=== PATIENT | male | born 1950 | race African-American/Black ===

== ENCOUNTER 2019-12-03 15:35 | Inpatient (IN) ==
[2019-12-03] MEDS ORDERED: nitroGLYCERIN DRIP 0 MCG/0 ML BTL ONE (15:45)
[2019-12-03] MEDS ORDERED: Heparin - STEMI 5,000 UNITS/ML 1 ml VIAL IV ONE ×2 (15:45→15:51)
[2019-12-03] MEDS ORDERED: NS 0.9% 1000 ml BAG 1,000 ML IV ONE ×2 (15:48→17:51)
[2019-12-03 16:03] LABS: ABS Basophils 0.1 10^3/ul (0-0.2); ABS Lymphocytes 1.2 10^3/ul (1.0-4.8); ABS Monocytes 0.6 10^3/ul (0-0.8); ABS Neutrophils 7.5 10^3/ul (1.5-7.7); Eosinophil % 0.1 %; Hematocrit 43 % (42-52); Hemoglobin 14.7 g/dL (14.0-18.0); Lymphocyte % 12.6 %; Mean Corpuscular HGB Conc 34 g/dL (31-36); Mean Corpuscular Hemoglobin 31 pg (27-31); Mean Corpuscular Volume 93 fL (80-94); Platelet Count 299 10^3/uL (150-450); Red Blood Count 4.67 10^6 /uL (4.18-5.48); Red Cell Distribution Width 15 % (10-15); White Blood Count 9.4 10^3/uL (3.5-10.8)
[2019-12-03] MEDS ORDERED: Heparin 1,000 UNIT/ML 10 ml (10,000 UNITS) CATHLAB/DIALYSIS IV ONE (16:03)
[2019-12-03] MEDS ORDERED: VERAPAMIL 2.5 MG/ML 2 ML VIAL ** 5 mg/2 ml ONE (16:03)
[2019-12-03] MEDS ORDERED: Lidocaine 1% VIAL 10 MG/ML VIAL ONE (16:04)
[2019-12-03] MEDS ORDERED: Heparin 2 UNITS/ML 1000 mls 2,000 ML IV ONE ×3 (16:04→16:29)
[2019-12-03] MEDS ORDERED: nitroGLYCERIN DRIP 25,000 MCG/250 ML BTL ONE (16:04)
[2019-12-03] MEDS ORDERED: Iohexol 350 (CONTRAST) 200 ML MDV IV ONE (16:05)
[2019-12-03 16:10] LABS: INR 1.01 (0.82-1.09)
[2019-12-03] MEDS ORDERED: Amiodarone 360 MG IVPREMIX 360 MG/200 ML BAG IV ONE ×2 (16:19→19:30)
[2019-12-03 16:24] LABS: ALT 13 U/L (7-52); AST 23 U/L (13-39); Albumin 4.7 g/dL (3.2-5.2); Albumin/Globulin Ratio 1.6 (1-3); Alkaline Phosphatase 48 U/L (34-104); Anion Gap 5 mmol/L (2-11); BUN/Creatinine Ratio 10.9 (8-20); Blood Urea Nitrogen 12 mg/dL (6-24); CO2 Carbon Dioxide 24 mmol/L (22-32); Calcium 9.9 mg/dL (8.6-10.3); Chloride 111 mmol/L (101-111); EGFR African American 80.5 (>60); EGFR Non-African American 66.6 (>60); Glucose 154 mg/dL (70-100); Potassium 4.3 mmol/L (3.5-5.0); Sodium 140 mmol/L (135-145); Total Protein 7.7 g/dL (6.4-8.9)
[2019-12-03 16:28] LABS: Troponin I 0.12 ng/mL (<0.03)
[2019-12-03] MEDS ORDERED: Bivalirudin 250 MG VIAL ONE (16:39)
[2019-12-03] MEDS ORDERED: Norepinephrine IV 1 MG/ML 4 ML VIAL ONE (17:14)
[2019-12-03] MEDS ORDERED: Heparin DRIP 25,000 UNITS BAG 25,000 UNITS/500 ML BAG ONE (17:22)
[2019-12-03] MEDS ORDERED: Heparin DRIP 25,000 UNITS BAG 25,000 UNITS/500 ML BAG IV SCH (17:45)
[2019-12-03] MEDS ORDERED: Heparin 5000 UNITS/ML 1 mL VIAL IV SCH (18:00)
[2019-12-03 19:17] LABS: LDL Cholesterol Direct 33 mg/dL
[2019-12-03] MEDS ORDERED: fentaNYL 100 mcg/2 ml 50 MCG/ML VIAL ONE (19:19)
[2019-12-03] MEDS ORDERED: fentaNYL 100 mcg/2 ml 50 MCG/ML VIAL IV ONE (19:20)
[2019-12-03 19:22] LABS: Troponin I > 80.00 ng/mL (<0.03)
[2019-12-03] MEDS ORDERED: Magnesium Sulfate IV 1GM/100ML 1 GM/100 ML BAG IV ONE (19:28)
[2019-12-03 19:32] LABS: CKMB ng/mL > 297.0 ng/mL (0.6-6.3); Creatine Kinase 3959 U/L (10-223)
[2019-12-03] MEDS ORDERED: Ondansetron 4 mg VIAL 2 MG/ML 2 ml VIAL ONE (19:35)
[2019-12-03] MEDS ORDERED: Ondansetron 4 mg VIAL 2 MG/ML 2 ml VIAL IV PRN (19:35)
[2019-12-03] MEDS ORDERED: Morphine 2 MG/ML SYRINGE IV PRN (20:48)
[2019-12-03 21:31] VITALS: BP 110/44
== END 2019-12-03 22:00 | disposition short-term general hospital (02) | DRG 272 ==
LOC: ED 15:35 → CHICATH 16:14 → ICU 16:15
PROVIDERS: ADMIT Internal Medicine Cardiovascular Disease; ATTEND Internal Medicine Cardiovascular Disease